=== PATIENT | male | born 1960 | race Caucasian/White ===

== ENCOUNTER → 2019-09-30 | Outpatient (CLI) | payer BC ==
[~2019-09-30] MED LIST: IOPAMIDOL 370 MG/ML 200 ML INFUS..BTL INJ ONE; SODIUM CHLORIDE 0.9% 50ML 50 ML ONE
[2019-09-30 11:29] LABS: BLOOD UREA NITROGEN 14 mg/dL (7-26); BUN/CREATININE RATIO 14 (6-25); CREATININE, SERUM 0.97 mg/dL (0.72-1.25); EST GLOMERULAR FILTRATION RATE > 60 ML/MIN (60-)
--- NOTE | 2019-09-30 12:25 | Diagnostic Imaging Report ---
EXAMINATION: CT of the abdomen and pelvis with contrast. TECHNIQUE: Spiral CT images of the abdomen and pelvis were performed from the lung bases to the lesser trochanters after the intravenous administration of 100 cc of Isovue 370. Coronal and sagittal reformatted images were obtained. COMPARISON: CT abdomen and pelvis without contrast 04/17/2014 CLINICAL HISTORY:Abdominal pain. Patient reports history of cholecystectomy DISCUSSION: ABDOMEN/PELVIS: LOWER THORAX:Linear opacity compatible with scar or subsegmental atelectasis in the lateral segment of the left lower lobe (series 2 image 16). Lung bases are otherwise unremarkable. Right coronary artery calcifications. HEPATOBILIARY: No focal hepatic lesions. No intra-or extrahepatic biliary ductal dilation. Gallbladder has been removed. SPLEEN: No splenomegaly or focal splenic lesion. PANCREAS: No focal masses or ductal dilatation. ADRENALS: No adrenal nodules. KIDNEYS/URETERS: Multiple round-ovoid, low-attenuation structures are identified within the renal pelves, all of which have average internal attenuation less than 20 Hounsfield units. There is no associated cortical thinning, and the ureters are of normal caliber. No calculi are identified. No solid renal mass lesion. Findings were present on the comparison examination from 2014, though the structures are more conspicuous on the current study. PELVIC ORGANS/BLADDER: Urinary bladder, prostate, and seminal vesicles are within normal limits. PERITONEUM/RETROPERITONEUM: No ascites or pneumoperitoneum. LYMPH NODES: No pelvic sidewall, retroperitoneal, or mesenteric lymphadenopathy. VESSELS: Atherosclerotic calcification of the abdominal aorta without aneurysmal dilatation. Portal vein, splenic vein, and central superior mesenteric vein are patent. GI TRACT: Large bowel shows no distension or wall thickening. Appendix is normal. No small bowel dilatation to suggest obstruction. BONES AND SOFT TISSUE: No osseous destructive lesions. Multilevel degenerative disc changes and facet arthropathy of the lumbar spine. No focal soft tissue abnormalities. IMPRESSION: No acute intra-abdominal or pelvic CT abnormalities. Renal findings are felt to represent multiple bilateral peripelvic cysts rather than hydronephrosis related to ureteropelvic junction obstruction, as there is no significant cortical thinning. No obstructing calculi are identified within the normal caliber ureters. CT urogram may be obtained for confirmation. Atherosclerotic vascular disease. Signed by: Dr. Lenny Brown M.D. on 09/30/2019 12:22 PM
== END ==
LOC: CT 10:08
PROVIDERS: ATTEND Emergency Medicine
DX: R10.9 Unspecified abdominal pain (principal)
CPT/HCPCS: 36415; 74177; 82565; 84520; Q9967

== ENCOUNTER → 2020-04-13 | Outpatient (CLI) | payer BC | LOC: CT 09:20 | PROVIDERS: ATTEND Emergency Medicine | DX: R10.9 Unspecified abdominal pain (principal) | CPT/HCPCS: 74176 ==

== ENCOUNTER → 2022-04-13 | Outpatient (CLI) | payer BC | LOC: RAD 08:21 | PROVIDERS: ATTEND Emergency Medicine | DX: M79.604 Pain in right leg (principal) | CPT/HCPCS: 93971 ==